=== PATIENT | female | born 1995 | race Caucasian/White ===

== ENCOUNTER 2017-01-16 00:08 | Emergency (ER) | payer OTHER ==
[~2017-01-16] VITALS: Ht 160 cm; Wt 72.2 kg
[~2017-01-16 00:08] MED LIST: ACET325T33 PO; CEPH-443 PO; FER325 PO; PREN-39 PO
[2017-01-16 00:24] VITALS: Ht 160 cm; Wt 72.2 kg
[2017-01-16] MEDS ORDERED: ACETAMINOPHEN 325 MG TAB PO ONE (01:30)
[2017-01-16] MEDS ORDERED: IBUPROFEN 600 MG TAB PO ONE (01:30)
--- NOTE | 2017-01-16 01:30 | ERD ---
ER Documentation Chief Complaint Chief Complaint Cold symptoms incl runny nose, sore throat. Feels SOB talking HPI 21-year-old female presents here in emergency department for complaints of cough runny nose congestion sore throat for 1 week. Patient has been having dry cough, does not cough up any phlegm or blood. Patient has wheezing at times. Patient has been having runny nose nasal congestion with green nasal discharge. Patient does not complain of sore throat or ear pain. Patient does complain of sore throat burning pain, 4/10 scale, as was upon swallowing. ROS All systems reviewed and are negative except as per history of present illness. Medications Home Meds Active Scripts Ibuprofen* (Motrin*) 600 Mg Tab, 600 MG PO Q6H Y for PAIN AND OR ELEVATED TEMP, #30 TAB Prov:NEELAM LYON NP 01/16/17 Cetirizine Hcl* (Zyrtec*) 10 Mg Capsule, 10 MG PO DAILY, #30 TAB.CHEW Prov:NEELAM LYON NP 01/16/17 Albuterol Sulfate* (Proair HFA*) 8.5 Gm Hfa.aer.ad, 2 PUFF INH Q4H Y for WHEEZING AND SOB, #1 INHALER Prov:NEELAM LYON NP 01/16/17 Azithromycin* (Zithromax*) 250 Mg Tablet, 250 MG PO .ZPACK DIRECTED, #6 TAB TAKE 500 MG (2 TABS) THE FIRST DAY THEN 250 MG (1 TAB) DAYS 2-5 Prov:NEELAM LYON NP 01/16/17 Guaifenesin-Codeine Phosphate* (Guaifenesin* AC Cough Syrup) 473 Ml Liquid, 5 ML PO Q4H Y for COUGH, #120 ML Prov:NEELAM LYON NP 01/16/17 Cephalexin* (Keflex*) 500 Mg Capsule, 500 MG PO QID for 7 Days, CAP Prov:LAURI LEE PA-C 11/09/15 Acetaminophen* (Tylenol*) 325 Mg Tablet, 1 TAB PO Q6 Y for PAIN AND OR ELEVATED TEMP, #20 TAB Prov:LAURI LEE PA-C 11/09/15 Reported Medications Ferrous Sulfate* (Ferrous Sulfate*) 325 Mg Tabec, 325 MG PO DAILY, TAB 10/09/13 Vits W-Ca,Fe,Fa(<1MG) ( Vitamins) 1 Tab Tablet, 1 TAB PO DAILY 10/09/13 Allergies Allergies: Coded Allergies: No Known Allergy (Unverified , 01/21/14) PMhx/Soc Medical and Surgical Hx: pt denies Medical Hx, pt denies Surgical Hx History of Surgery: No Anesthesia Reaction: No Hx Neurological Disorder: No Hx Respiratory Disorders: No Hx Cardiac Disorders: No Hx Psychiatric Problems: No Hx Miscellaneous Medical Probl: No Hx Alcohol Use: No Hx Substance Use: No Hx Tobacco Use: No Smoking Status: Never smoker FmHx Family History: No coronary disease, No diabetes, No other Physical Exam Vitals Vital Signs Date Time Temp Pulse Resp B/P Pulse Ox O2 Delivery O2 Flow Rate FiO2 01/16/17 02:06 98.5 106 119/67 99 Room Air 01/16/17 00:24 99.8 116 22 135/91 96 Physical Exam GENERAL: The patient is well developed and appropriate for usual state of health, in no apparent distress. HEENT: Atraumatic. Ears: Normal tympanic membrane, no erythema or bulging. No ear canal swelling. No ear discharge. Nose: Edematous nasal turbinates with nasal discharge. Throat: oropharynx erythematous with postnasal drip. No tonsillar swelling or tonsillar exudates. No lymphadenopathy. CHEST: Clear to auscultation bilaterally. There are no rales, wheezes or rhonchi. HEART: Regular rate and rhythm. No murmurs, clicks, rubs or gallops. No S3 or S4. ABDOMEN: Soft, nontender and nondistended. Good bowel sounds. No rebound or guarding. No gross peritonitis. No gross organomegaly or masses. No Agustin sign or McBurney point tenderness. BACK: No midline or flank tenderness. EXTREMITIES: Equal pulses bilaterally. There is no peripheral clubbing, cyanosis or edema. No focal swelling or erythema. Full range of motion. Grossly neurovascularly intact. NEURO: Alert and oriented. Cranial nerves 2-12 intact. Motor strength in all 4 extremities with 5/5 strength. Sensation grossly intact. Normal speech and gait. SKIN: There is no apparent rash or petechia. The skin is warm and dry. HEMATOLOGIC AND LYMPHATIC: There is no evidence of excessive bruising or lymphedema. No gross cervical, axillary, or inguinal lymphadenopathy. Results 24 hrs Current Medications Medications (Trade) Dose Ordered Sig/[place]io Route PRN Reason Start Time Stop Time Status Last Admin Dose Admin Ibuprofen (Motrin) 600 mg ONCE ONCE PO 01/16/17 01:30 12 01:31 DC 01/16/17 01:21 Acetaminophen (Tylenol Tab) 650 mg ONCE ONCE PO 01/16/17 01:30 01/16/17 01:31 DC 01/16/17 01:22 Patient was given medicines for fever control here in the emergency department. After treatment, patient temperature improved and lower. Patient appears well and is hemodynamically stable. Procedures/MDM Medical Decision Making: Patient symptoms are most likely consistent with acute bronchitis most likely caused by atypical infection. There is low suspicion for Pneumonia at this time since patients lungs sounds are clear, patient O2 saturation is normal and patient doesnt show any respiratory distress. Patients chest xray doesnt show infiltrates or any other cardiopulmonary emergencies at this time. There is low suspicion for other cardiopulmonary emergencies at this time such as CHF, Pulmonary Embolism, Pneumothorax, Aortic Aneurysm or any other cardiopulmonary emergencies at this time. There is low suspicion for sepsis. Patient appears well and is hemodynamically stable. Fever is controlled with medicines. Disposition: Home. Condition: Stable Prescriptions: Azithromycin guaifenesin with codeine Zyrtec ibuprofen albuterol Instructions: Patient is advised to take medications as prescribed. Patient is advised to rest. Patient advised to increase fluid intake, do humidifier at home and if possible, do salt water gargles. Patient is advised that if symptoms are worse, shortness of breath, uncontrolled fever, stridor, vomiting, worst signs and symptoms to return to emergency department immediately. Otherwise, patient is advised to follow up with primary doctor in 5-7 days. Disclaimer: Inadvertent spelling and grammatical errors are likely due to EHR/ dictation software use and do not reflect on the overall quality of patient care. Also, please note that the electronic time recorded on this note does not necessarily reflect the actual time of the patient encounter. Departure Diagnosis: Primary Impression: Acute bronchitis Bronchitis organism: unspecified organism Qualified Code: J20.9 - Acute bronchitis, unspecified organism Condition: Stable Patient Instructions: Bronchitis, Antiobiotic Treatment (Adult) Additional Instructions: Patient is advised to take medications as prescribed. Patient is advised to rest. Patient advised to increase fluid intake, do humidifier at home and if possible, do salt water gargles. Patient is advised that if symptoms are worse, shortness of breath, uncontrolled fever, stridor, vomiting, worst signs and symptoms to return to emergency department immediately. Otherwise, patient is advised to follow up with primary doctor in 5-7 days. NEELAM LYON NP Jan 16, 2017 01:30
--- NOTE | 2017-01-16 01:54 | RADRPT ---
PROCEDURE: Portable chest x-ray. CLINICAL INDICATION: Cough. TECHNIQUE: Portable AP view of the chest. COMPARISON: None. FINDINGS: No pulmonary edema or conolidation is identified. The cardiac silhouette is magnified. No pleural effusion is seen. There is no pneumothorax. IMPRESSION: 1. No evidence of acute cardiopulmonary disease. RPTAT: HTAR .Yaya Elder MD, MD Date Time Electronically viewed and signed by .Yaya Elder MD, on 01/16/2017 01:54 .R/
[2017-01-16] MEDS ORDERED: IBUP-1542 PO (02:08)
[2017-01-16] MEDS ORDERED: GUAI473L22 PO (02:08)
[2017-01-16] MEDS ORDERED: CETI10CA PO (02:08)
[2017-01-16] MEDS ORDERED: ALBU8.5H3 INH (02:08)
[2017-01-16] MEDS ORDERED: AZIT250T94 PO (02:08)
[2017-01-16 02:21] VITALS: BP 119/67; PULSE 106; RESP 22; TEMP 98.5
== END 2017-01-16 02:29 | disposition home or self-care (01) ==
LOC: FTE 00:08
DX: J20.9 Acute bronchitis, unspecified (principal)
CPT/HCPCS: 71010; Z7502; Z7610

== ENCOUNTER 2017-07-24 20:00 | Emergency (ER) | END 2017-07-24 21:28 | disposition home or self-care (01) ==